=== PATIENT | male | born 1955 | race Asian ===

== ENCOUNTER 2022-02-19 09:10 | Emergency (ER) | payer OTHER ==
[~2022-02-19] VITALS: Ht 167.6 cm; Wt 78.0 kg
[2022-02-19] MEDS ORDERED: HYDROCODONE/ACETAMINOPHEN 5/325MG TABLET PO ONE (09:45)
[2022-02-19] MEDS ORDERED: KETOROLAC 60MG/2ML VIAL IM ONE (09:45)
[2022-02-19] MEDS ORDERED: TOPUD MT (12:18)
[2022-02-19] MEDS ORDERED: IBUP-2028 MT (12:18)
[2022-02-19 12:38] VITALS: BP 168/73
== END 2022-02-19 12:38 | disposition home or self-care (01) ==
LOC: ER 09:10
DX: M54.50 Low back pain, unspecified (principal); M54.2 Cervicalgia; G89.11 Acute pain due to trauma; I10 Essential (primary) hypertension; V43.52XA Car driver injured in collision with other type car in traffic accident, initial encounter; Y93.89 Activity, other specified; Y92.488 Other paved roadways as the place of occurrence of the external cause
CPT/HCPCS: 72125; 72128; 72131; 96372; 99284; J1885